=== PATIENT | female | born 1995 | race African-American/Black ===

== ENCOUNTER 2017-01-04 13:02 | Emergency (ER) | payer OTHER ==
[~2017-01-04] VITALS: Ht 160 cm; Wt 60.0 kg
[2017-01-04 13:06] VITALS: BP 130/77; PULSE 86; TEMP 37.2; O2SAT 98; Ht 160 cm; Wt 60.0 kg
[2017-01-04] MEDS ORDERED: BCPILLS PO (13:34)
[2017-01-04] MEDS ORDERED: VNTHFA/IN INH (13:34)
--- NOTE | 2017-01-04 16:37 | EMERGENCY ROOM VISIT NOTE ---
History First contact with patient: 13:10 Chief Complaint: FLU LIKE SX Stated Complaint: SORE THROAT,FATIUGE,HEADACHES History of Present Illness The patient is a 21 year old female who presents to the Emergency Room with complaints of improving symptoms of sore throat, fatigue and headaches. The patient reports that she developed a sore throat on Friday. By Friday, she had muscle aches and a headache. The patient has generally felt fatigued the entire week. She does admit that her symptoms are now improving. She did talk to her mother who wanted her to come to the emergency department to have strep throat ruled out. The patient denies any prior history of recurrent strep throat. She denies any chest pain, shortness of breath or cough. She also denies any neck or back pain. She has not checked her temperature today. Review of Systems 10 system review was performed and was negative except for pertinent positives and negatives as indicated in history of present illness Past Medical/Surgical History Medical Problems: (1) Asthma Surgical Problems: (1) H/O oral surgery Family History Cancer Heart disease Hypertension Kidney disease Kidney stones Social History Smoking Status: Never Smoker Alcohol Use: none Drug Use: none Marital Status: single Housing Status: lives with roommate Occupation Status: student Current/Historical Medications Scheduled Control Pills ( Control Pills), 1 TAB PO DAILY Scheduled PRN Albuterol Hfa (Ventolin Hfa), 2-4 PUFFS INH Q6H PRN for SOB/Wheezing Allergies Coded Allergies: No Known Allergies (Unverified , 04/09/15) Physical Exam Vital Signs Date Time Temp Pulse Resp B/P Pulse Ox O2 Delivery O2 Flow Rate FiO2 01/04/17 13:06 37.2 86 16 130/77 98 Pain Rating (0-10): 6.0 Physical Exam CONSTITUTIONAL: Healthy and well nourished. Alert and oriented X 3 with positive affect. Patient does not appear in any acute distress. HEENT: Normocephalic, atraumatic. Pupils equal, round and reactive. No facial edema. Ears and nares are clear. OROPHARYNX: Minimal posterior pharyngeal erythema. No tonsillar hypertrophy or exudates. NECK: Full active range of motion without discomfort. No nuchal rigidity. LYMPHATICS: No cervical chain adenopathy. RESPIRATORY: Clear to auscultation bilaterally with no wheezing, crackles, rhonchi or stridor. CARDIOVASCULAR: Regular rate and rhythm with no murmurs, rubs or gallops. GASTROINTESTINAL: Bowel sounds present in all quadrants. Soft and nontender to palpation. MUSCULOSKELETAL: Full range of motion of all joints without discomfort. INTEGUMENTARY: No rash or other significant dermatologic conditions noted. NEUROLOGIC: No focal neurologic deficits noted. Medical Decision & Procedures ED Course Patient history and physical exam were performed. Nurse's notes were reviewed. Vital signs were reviewed and were normal. The patient reports that her symptoms are improving over the past 24 hours. At this point, I explained that her symptoms are likely secondary to a viral pharyngitis. She was encouraged to alternate ibuprofen and Tylenol as needed for pain. She was instructed to remain well-hydrated. Return to the emergency department or follow-up with [facility] as needed for any persistent or worsening symptoms. The patient was happy with plan of care, and voiced understanding of all discharge instructions. Medical Decision Impression Primary Impression: Acute viral pharyngitis Departure Information Dispostion Home / Self-Care Condition GOOD Forms HOME CARE DOCUMENTATION FORM, IMPORTANT VISIT INFORMATION Patient Instructions Sore Throats Self Care, [facility] Additional Instructions Read sore throat handout. Remain well-hydrated. Ibuprofen 600 mg and/or Tylenol 500 mg every 8 hours. You may also alternate these medications for more effective pain relief: Ibuprofen --4 HRS--> Tylenol --4 HRS--> ibuprofen --4 HRS--> Tylenol .... Follow-up with [facility] if symptoms are not improving within the next 3-5 days.
== END 2017-01-04 13:35 | disposition home or self-care (01) ==
LOC: C.EDB 13:03
DX: J02.9 Acute pharyngitis, unspecified (principal); J45.909 Unspecified asthma, uncomplicated; Z79.3 Long term (current) use of hormonal contraceptives

== ENCOUNTER 2017-06-24 11:05 | Emergency (ER) | payer OTHER ==
[~2017-06-24] VITALS: Ht 162.6 cm; Wt 58.0 kg
[~2017-06-24 11:05] MED LIST: BCPILLS PO; VNTHFA/IN INH
[2017-06-24 11:08] VITALS: BP 144/75; PULSE 66; TEMP 36.7; Ht 162.6 cm; Wt 58.0 kg
[2017-06-24 11:15] VITALS: O2SAT 98
[2017-06-24] MEDS ORDERED: MONT1CHW6 PO (12:04)
[2017-06-24] MEDS ORDERED: CETI10TA84 PO (12:04)
[2017-06-24] MEDS ORDERED: FLVHFA44 INH (12:04)
[2017-06-24] MEDS ORDERED: MULT-506 PO (12:04)
[2017-06-24] MEDS ORDERED: AMOX500C3 PO (12:09)
--- NOTE | 2017-06-24 12:11 | EMERGENCY ROOM VISIT NOTE ---
ED Visit Note First contact with patient: 11:34 CHIEF COMPLAINT: Sore throat, cough, earache HISTORY OF PRESENT ILLNESS: This 21-year-old female presents to the emergency department and states they have had an earache for 3 days. The patient has had a sore throat and recent URI for the past week. Her sore throat is improving, however the ear pain seems to be worsening. The patient states on Friday, she began experiencing pain in the left ear, been today noticed she was also experiencing right ear pain. The patient states "my ears feel clogged, likely have to pop". She also complains of chills, body aches, fatigue, nausea. The patient has tried DayQuil and NyQuil, in addition to ibuprofen with very minimal relief in her symptoms. There is no cough and no hoarseness. They rate the pain as sharp and 4/10. The pain is in the bilateral ears. REVIEW OF SYSTEMS: A 6 system review of systems was completed with positives and pertinent negatives listed in the HPI. ALLERGIES: None MEDICATIONS: control pills, albuterol, Singulair, Flovent, Zyrtec PMH: Asthma. Immunizations are up to date. SH: The patient is a [employer] student. She lives locally with her remain. The patient denies drug, alcohol, tobacco use. PHYSICAL EXAM: Vital Signs: Reviewed Nurse's notes, temperature 36.7C orally. GENERAL: This is an otherwise healthy 21-year-old female, in no acute distress, well-developed, well-nourished. SKIN: Normal. HEART: Regular rate and rhythm without murmurs gallops or rubs. LUNGS: Clear to auscultation and breath sounds equal, no wheezes, rales, or rhonchi. MOUTH: The pharynx is not inflamed and the tonsils are not enlarged. The airway is patent. EARS: The right tympanic membrane is erythematous, inflamed and bulging. The right external auditory canal is clear with mild tragus tenderness. The Left tympanic membrane is slightly erythematous, but without erythema or effusion. The left external auditory canal is clear. NOSE: nares patent without discharge , erythema, or swelling. No sinus tenderness on palpation or percussion. LYMPH: There is no lymphadenopathy. ED COURSE: I examined the patient. Discussion with the patient regarding instructions regarding otitis media. The patient was discharged home in stable condition. DIFFERENTIAL DIAGNOSIS: Upper respiratory infection, otitis media, otitis externa, foreign body in the ear, acute sinusitis, and others DIAGNOSIS: Acute otitis media of the right ear DISCHARGE INSTRUCTIONS & TREATMENT: You have been treated in the Emergency Department for an Inner Ear Infection ( Otitis Media). You were prescribed amoxicillin to be taken 3 times daily. This is an antibiotic. All antibiotics have the potential to cause diarrhea. Stop this medication and contact a medical provider if you were to develop any significant adverse side effects including: wheezing, shortness of breath, passing out, vomiting, or a diffuse rash. Always take antibiotics as directed and COMPLETE the ENTIRE course regardless of the improvement of your symptoms. For pain and fever control, you can use the following [id number] medicines (if >12 yo): - Regular strength (325mg/tab) Tylenol (acetaminophen) 2 tabs every 4-6 hours as needed. Do not exceed 9 tablets in a 24 hour period. Avoid taking more than 3 grams (3000 mg) of Tylenol per day. This includes any other sources of acetaminophen you may take on a regular basis. - Regular strength (200 mg/tab) Advil (ibuprofen) 1-2 tabs every 4-6 hours as needed. Do not exceed a dose of 2400 mg per day. You may take an antihistamine such as Zyrtec daily to help with drainage. You may also take OTC cold medications such as Sudafed or DayQuil. Please do not exceed the maximum recommended daily dosage of acetaminophen. You should follow-up with your Primary Care Provider from today's Emergency Department visit. Return to the emergency department if you develop the following symptoms despite treatment course outlined above: headache, fever, intractable pain, increased redness, swelling, or purulent discharge. Problem List Medical Problems: (1) Asthma Status: Chronic Surgical Problems: (1) H/O oral surgery Status: Resolved Current/Historical Medications Scheduled Amoxicillin (Amoxil), 1,000 MG PO TID Control Pills ( Control Pills), 1 TAB PO DAILY Cetirizine (Zyrtec), 10 MG PO DAILY Montelukast Sodium (Singulair Chewable), 5 MG PO DAILY Multivitamin (Multivitamin), 1 TAB PO DAILY Scheduled PRN Albuterol Hfa (Ventolin Hfa), 2-4 PUFFS INH Q6H PRN for SOB/Wheezing Fluticasone Propionate (Flovent Hfa), 2 PUFFS INH BID PRN for SOB/Wheezing Allergies Coded Allergies: No Known Allergies (Unverified , 06/24/17) Vital Signs Date Time Temp Pulse Resp B/P (MAP) Pulse Ox O2 Delivery O2 Flow Rate FiO2 06/24/17 11:15 98 Room Air 06/24/17 11:08 36.7 66 18 144/75 97 Room Air Departure Information Impression Primary Impression: Otitis media Dispostion Home / Self-Care Condition GOOD Prescriptions Amoxicillin (AMOXIL) 500 Mg Cap 1000 MG PO TID for 10 Days, #60 CAP Prov: Briana Rios PA-C 06/24/17 Referrals No Doctor, Assigned (PCP) Patient Instructions ED Otitis Media Acute Adult, [facility] Additional Instructions You have been treated in the Emergency Department for an Inner Ear Infection ( Otitis Media). You were prescribed amoxicillin to be taken 3 times daily. This is an antibiotic. All antibiotics have the potential to cause diarrhea. Stop this medication and contact a medical provider if you were to develop any significant adverse side effects including: wheezing, shortness of breath, passing out, vomiting, or a diffuse rash. Always take antibiotics as directed and COMPLETE the ENTIRE course regardless of the improvement of your symptoms. For pain and fever control, you can use the following [id number] medicines (if >12 yo): - Regular strength (325mg/tab) Tylenol (acetaminophen) 2 tabs every 4-6 hours as needed. Do not exceed 9 tablets in a 24 hour period. Avoid taking more than 3 grams (3000 mg) of Tylenol per day. This includes any other sources of acetaminophen you may take on a regular basis. - Regular strength (200 mg/tab) Advil (ibuprofen) 1-2 tabs every 4-6 hours as needed. Do not exceed a dose of 2400 mg per day. You may take an antihistamine such as Zyrtec daily to help with drainage. You may also take OTC cold medications such as Sudafed or DayQuil. Please do not exceed the maximum recommended daily dosage of acetaminophen. You should follow-up with your Primary Care Provider from today's Emergency Department visit. Return to the emergency department if you develop the following symptoms despite treatment course outlined above: headache, fever, intractable pain, increased redness, swelling, or purulent discharge. School Instructions Return To School: 1 day Problem Qualifiers Primary Impression: Otitis media Otitis media type: serous Chronicity: acute Laterality: right Recurrence : not specified as recurrent Qualified Codes: H65.01 - Acute serous otitis media, right ear
== END 2017-06-24 12:20 | disposition home or self-care (01) ==
LOC: C.EDB 11:07 → C.EDD 12:20
DX: H65.01 Acute serous otitis media, right ear (principal); J45.909 Unspecified asthma, uncomplicated; Z79.3 Long term (current) use of hormonal contraceptives; Z79.899 Other long term (current) drug therapy